=== PATIENT | female | born 1950 | race Caucasian/White ===

== ENCOUNTER → 2016-09-24 | Outpatient (CLI) | payer OTHER ==
[~2016-09-24] MED LIST: IOPAMIDOL (ISOVUE-300) 100 ML BTL IV ONE
--- NOTE | 2016-09-24 17:30 | CT ---
CT Abdomen and Pelvis - Urogram (Without and With Contrast) Indication: Urinary tract infection and hematuria. Technique: Helical noncontrast scan was obtained through the abdomen and pelvis to assess for calcul i. 98 mL of Isovue-[id number] were subsequently uneventfully intravenously injected with a power injector. The abdomen was scanned during nephrographic phase. A 12-minute delay scan was obtained through the abdomen and pelvis. The collimation was 5 mm. Images were reconstructed in multiple planes for CT urogram imaging. Dose reduction techniques were utilized. Findings Noncontrast: A 2-mm nonobstructing calculus in the distal left ureter, 2 cm upstream from the ureter ovesical junction, is best demonstrated on image #259 of series #3. No right ureteral calculi. Bila teral nephrolithiasis is evidenced by six intrarenal calculi on the right and two intrarenal calculi on the left. The largest calculus in the right kidney measures 7 x 5 mm in the upper pole. The larg est calculus in the left mid kidney measures 4 x 2 mm. No hydronephrosis or hydroureter. No bladder stones. Postcontrast: The kidneys symmetrically enhance and excrete contrast. No enhancing renal mass or fi lling defect. The urinary bladder is unremarkable, with no wall thickening, mass, or diverticula. No intraabdominal mass, lymphadenopathy, free fluid, or mesenteric edema. The lung bases are clear. No pulmonary nodules or pleural effusion. The liver, spleen, pancreas, and adrenal glands are normal. A 2.0- x 1.5-cm partially calcified ston e resides in the gallbladder lumen. No biliary dilation or common bile duct stone. The portal vein is patent. The bowel pattern is normal. Mild constipation and scattered diverticula throughout the sigmoid colo n. The appendix is normal. The abdominal aorta is normal caliber, with moderate calcified mural plaque. A long posterior fusion construct extends from the L2 level to the sacrum. Impression: 1. 2-mm nonobstructing distal left ureteral calculus. 2. No hydronephrosis or hydroureter. 3. Bilateral nephrolithiasis. 4. No renal mass or evidence of uroepithelial malignancy. 5. No acute intraabdominal inflammatory process. 6. Cholelithiasis. 7. Sigmoid diverticulosis.
== END ==
LOC: CIMAGING 15:21
PROVIDERS: ATTEND Physician Assistant
DX: N20.1 Calculus of ureter (principal); N20.0 Calculus of kidney; R31.9 Hematuria, unspecified; K80.20 Calculus of gallbladder without cholecystitis without obstruction; Z87.440 Personal history of urinary (tract) infections
CPT/HCPCS: 74178; Q9967

== ENCOUNTER → 2016-10-31 | Outpatient (CLI) | payer OTHER | LOC: FIMAGING 08:47 | PROVIDERS: ATTEND Neurological Surgery | DX: M51.34 Other intervertebral disc degeneration, thoracic region (principal); M47.894 Other spondylosis, thoracic region; M51.25 Other intervertebral disc displacement, thoracolumbar region; M48.05 Spinal stenosis, thoracolumbar region; M99.72 Connective tissue and disc stenosis of intervertebral foramina of thoracic region; M51.36 Other intervertebral disc degeneration, lumbar region; M43.16 Spondylolisthesis, lumbar region; M48.06 Spinal stenosis, lumbar region; Z98.1 Arthrodesis status ==

== ENCOUNTER → 2017-06-27 | Outpatient (CLI) | payer OTHER | LOC: CIMAGING 08:24 | PROVIDERS: ATTEND Family Medicine | DX: Z12.31 Encounter for screening mammogram for malignant neoplasm of breast (principal) | CPT/HCPCS: G0202 ==

== ENCOUNTER → 2018-07-01 | Outpatient (CLI) | payer OTHER | LOC: CIMAGING 10:06 | PROVIDERS: ATTEND Family Medicine | DX: Z12.31 Encounter for screening mammogram for malignant neoplasm of breast (principal) ==